=== PATIENT | female | born 1945 | race Caucasian/White ===

== ENCOUNTER → 2025-02-04 10:32 | Outpatient (BNVA) | payer MEDICARE, OTHER, SELFPAY | PROVIDERS: Family Provider Family Medicine; Visit Provider Dermatology | DX: D22.5 Melanocytic nevi of trunk (principal); L82.1 Other seborrheic keratosis; L72.0 Epidermal cyst; L57.0 Actinic keratosis; C44.519 Basal cell carcinoma of skin of other part of trunk | CPT/HCPCS: 11603; 13101; 99203 ==

== ENCOUNTER → 2025-02-19 11:51 | Outpatient (BNVA) | payer MEDICARE, OTHER, SELFPAY | PROVIDERS: Family Provider Family Medicine; Visit Provider Dermatology | DX: D22.5 Melanocytic nevi of trunk (principal); L82.1 Other seborrheic keratosis; D48.5 Neoplasm of uncertain behavior of skin | CPT/HCPCS: 11102; 99213 ==

== ENCOUNTER → 2025-03-05 12:00 | Outpatient (BNVA) | payer MEDICARE, OTHER, SELFPAY | PROVIDERS: Family Provider Family Medicine; Visit Provider Dermatology | DX: D03.61 Melanoma in situ of right upper limb, including shoulder (principal); D22.5 Melanocytic nevi of trunk; Z08 Encounter for follow-up examination after completed treatment for malignant neoplasm; Z85.828 Personal history of other malignant neoplasm of skin | CPT/HCPCS: 99214 ==

== ENCOUNTER 2025-03-11 13:56 | Emergency (ER) | payer MEDICARE, OTHER, SELFPAY ==
--- OUTSIDE RECORDS SUMMARY | 2025-03-11 14:01 | XMS_ITS | Encounter Summary ---
Author Organization [facility] Address [address] [place] [address] Care Team Providers Care Central Lab Technician Name Role Phone Nicky Moreno MD Primary Care Provider [phone] [phone] Reason for Referral * Radiology Services (Routine) - Closed Specialty Diagnoses / Procedures Referred By Fransico snyder Referred To Contact Diagnoses Right ureteral stone Procedures XR FLUORO LESS THAN 1 HOUR Lovely Musa MD [address] [address] Phone: tel: fax: Referral ID Status Reason Start Date Expiration Date Visits Re quested Visits Authorized [id number] Closed 06/30/2020 07/31/2021 1 1 COATER Encounter Details Date Type Department Care Team (Latest Contact Info) Description 06/30/2020 Ancillary Orders [facility] Radiology OR [facility] [place] [address] Lovely Musa MD [address] [address] Right ureteral stone Social History Tobacco Use Types Packs/Day Years Used Date Smoking Tobacco: Former Smokeless Tobacco: Never Alcohol Use Standard Drinks/Week Comments No 0 (1 standard drink = 0.6 oz pur e alcohol) Comments No Sex and Gender Information Value Date Recorded Sex Assigned at Not on file Legal Sex Female 7:18 PM CDT Gender Identity Not on file Sexual Orientation Not on file COVID-19 Exposure Response Date Recorded In the last month, have you been in contact with someone who was confirmed or suspected to have Coronavirus / COVID-19? No / Unsure 06/29/2020 8:05 AM LEAD COATER documented as of this encounter Plan of Treatment Not on file documented as of this encounter Results * XR FLUORO LESS THAN 1 HOUR (06/29/2020 9:52 AM LEAD COATER) Narrative 06/30/2020 5:05 AM LEAD COATER Order information only. Exam was auto-finalized. us Lovely Musa MD DIAGNOSTIC IMAGING ORDERAB LES Final Result documented in this encounter Visit Diagnoses Diagnosis Right ureteral stone Calculus of ureter Right ureteral stone Calculus of ureter documented in this encounter Additional Health Concerns Assessment Noted Time PHQ-9 Depression Total Score: 1 06/08/20 20 8:59 AM LEAD COATER documented as of this encounter Care Teams Central Lab Technician Relationship Specialty Start Date End Date Nicky Moreno MD [address] [facility] [address] [place] [address] PCP - General Family Practice 09/20/20 documented as of this encounter
[2025-03-11 14:02] VITALS: BP 150/85; PULSE 81; RESP 16; TEMP 36.5; O2SAT 97
--- OUTSIDE RECORDS SUMMARY | 2025-03-11 14:02 | XMS_ITS | Encounter Summary ---
Author Organization [facility] Address [address] [place] [address] Care Team Providers Care Director Of Accounting Name Role Phone Nick Vo MD Primary Care Provider [phone] [phone] Encounter Details Date Type Department Care Team (Late Contact Info) Description 01/27/2022 Digital Self COVID-1 9 Monitoring [place] ABSTRACTION Provider, Abstract NO ADDRESS ON FILE Social History Tobacco Use Types Packs/Day Years Used Date Smoking Tobacco: Former Cigarettes 1.5 40 Smokeless Tobacco: Never Alcohol Use Standard Drinks/Week Comments No 0 (1 standard drink = 0.6 oz pur e alcohol) Comments No Sex and Gender Information Value Date Recorded Sex Assigned at Not on file Legal Sex Female 6:09 AM BANKRUPTCY MANAGER Gender Identity Not on file Sexual Orientation Not on file COVID-19 Exposure Response Date Recorded In the last 10 days, have yo u been in contact with someone who was confirmed or suspected to have Coronavirus/COVID-19? No / Unsure 01/24/2022 10:25 AM CDT documented as of this encounter Plan of Treatment Upcoming Encounters Date Type Department Care Team (Late Contact Info) Description 06/01/2025 8:00 AM BANKRUPTCY MANAGER Office Visit [facility] Medicine [address] [address] Nick Vo MD [address] [address] documented as of this encounter Visit Diagnoses Not on filedocumented in this encounter Additional Health Concerns Infection Onset Date Last Indicated Resolved Time COVID-19 01/24/2022 01/24/2022 02/13/2022 1:16 AM CDT documented as of this encounter Care Teams Director Of Accounting Relationship Specialty Start Date End Date Nick Vo MD [address] [address] PCP - General Family Practice 07/11/21 documented as of this encounter
--- OUTSIDE RECORDS SUMMARY | 2025-03-11 14:02 | XMS_ITS | Encounter Summary ---
Author Organization [facility] Address [address] [place] [address] Care Team Providers Care Mortgage Loan Reviewer Name Role Phone Nick Vo MD Primary Care Provider [phone] [phone] Encounter Details Date Type Department Care Team (Late Contact Info) Description 01/26/2022 Digital Self COVID-1 9 Monitoring STL ABSTRACTION [...] on file Legal Sex Female 6:09 AM TEAM LEADER SURGERY Gender Identity Not on file Sexual Orientation [...] (Late Contact Info) Description 06/01/2025 8:00 AM TEAM LEADER SURGERY Office Visit [facility] Medicine [address] [address] Nick Vo MD [address] [address] documented as of this encounter Visit Diagnoses Not on filedocumented in this encounter Additional Health Concerns Infection Onset Date Last Indicated Resolved Time COVID-19 01/24/2022 01/24/2022 02/13/2022 1:16 AM CDT documented as of this encounter Care Teams Mortgage Loan Reviewer Relationship Specialty Start Date End Date Nick Vo MD [address] [address] PCP - General Family Practice 07/11/21 documented as of this encounter
--- OUTSIDE RECORDS SUMMARY | 2025-03-11 14:02 | XMS_ITS | Encounter Summary ---
Author Organization [facility] Address [address] [place] [address] Care Team Providers Care Roll Handler Name Role Phone Nicky Moreno MD Primary Care Provider [phone] [phone] Reason for Referral * Radiology Services (Routine) - Closed Specialty Diagnoses / Procedures Referred By Fransico snyder Referred To Contact Diagnoses Right ureteral stone Procedures XR FLUORO LESS THAN 1 HOUR Lovely Musa MD [address] [address] Phone: tel: fax: Referral ID Status Reason Start Date Expiration Date Visits Re quested Visits Authorized [id number] Closed 10/20/2020 11/20/2021 1 1 Encounter Details Date Type Department Care Team (Latest Contact Info) Description 10/20/2020 Ancillary Orders [facility] Radiology OR [facility] [place] [address] Lovely Musa MD [address] [address] Right ureteral stone Social History [...] have Coronavirus / COVID-19? No / Unsure 10/19/2020 11:23 AM CDT documented as of this encounter Plan of Treatment Not on file documented as of this encounter Results * XR FLUORO LESS THAN 1 HOUR (10/19/2020 5:13 PM CDT) Narrative 10/20/2020 5:29 AM CDT Order information only. Exam was auto-finalized. us Lovely Musa MD DIAGNOSTIC IMAGING ORDERAB LES Final Result documented in this encounter Visit Diagnoses Diagnosis Right ureteral stone Calculus of ureter Right ureteral stone Calculus of ureter documented in this encounter Additional Health Concerns Assessment Noted Time PHQ-9 Depression Total Score: 1 06/08/20 20 8:59 AM LINE CONTROLLER documented as of this encounter Care Teams Roll Handler Relationship Specialty Start Date End Date Nicky Moreno MD [address] [facility] [address] [place] [id number] PCP - General Family Practice 09/20/20 documented as of this encounter
--- OUTSIDE RECORDS SUMMARY | 2025-03-11 14:02 | XMS_ITS | Clinical Summary ---
Author Organization [facility] Address [address] [facility] [address] [place] [address] Phone Care Team Providers Care Agricultural Equipment Mechanic Name Role Phone Nick Vo MD Primary Care Provider [phone] [phone] Allergies Active Allergy Reactions Criticality Noted Date Comments Diphenhydramine Hcl Hives High 02/05/2017 Iodine Hives High 02/05/2017 Medications trospium (SANCTURA) 20 mg TabletIndication s:OAB (overactive bladder),Mixed incontinence Take 1 Tablet (20 mg) by mouth 2 times daily. 180 Tablet 3 4 Active HYDROcodone-acet aminophen (NORCO) 5-325 mg tabletIndication s:Chronic pain of both hips Take 1 Tablet by mouth every 8 hours as needed for Pain, Moderate. Max Daily Amount: 3 Tablets 20 Tablet 4 Active Additional Information Patient not taking.Reported on 01/05/2025 cholecalciferol 1,250 mcg (50,000 unit) Capsule Take 1 Capsule (50,000 Units) by mouth every 7 days. 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 02/12/2017 Morbid obesity with body mass index of 40.0-49.9 02/12/2017 History of colon cancer 02/12/2017 History of [place] (myocardial infarction) 02/12/2017 H/O partial resection of colon 02/12/2017 Bladder calculi 02/12/2017 Resolved Problems Problem Noted Date Diagnosed Date Resolved Date Influenza 08/27/2019 07/11/2021 Encounters Date Type Department Care Team Description 01/16/[address] [phone] Nick Vo MD Provider Call; Patient Communication 01/08/2025 Results Follow-Up [address] [phone] Rosa Maria Veliz FNP PATHOLOGY 01/05/2025 3:20 PM CDT Office Visit [address] [phone] Rosa Maria Veliz FNP Skin lesion (Primary Dx); Lower extremity edema 12/23/2024 External Device Data STL ABSTRACTION Provider, Abstract from Last 3 Months Immunizations Immunization Administration Dates Next Due ([employer])(12 YR UP) COVID-19 VACCINE - EMERGENCY USE AUTHORIZATION, MRNA, [id number]) 30 MCG/0.3 ML IM SUSP 02/18/2021,01/28/2021 Family History Medical History Relation Name Comments No Known Problems Daughter Cancer Mother UNKOWN TYPE OF CANCER Ovarian Cancer Sister 1 Other Sister 2 DIVERTICULITIS Breast Cancer Neg Hx Relation Name Status Comments Daughter Alive Maternal Grandmother Mother Sister 1 Sister 2 Sister 3 Alive Social History Tobacco Use Types Packs/Day Years Used Date Smoking Tobacco: Former Cigarettes 1.5 40 Smokeless Tobacco: Never Tobacco Cessation:Counseling Given: No Alcohol Use Standard Drinks/Week Comments No 0 (1 standard drink = 0.6 oz pur e alcohol) Comments No Sex and Gender Information Value Date Recorded Sex Assigned at Not on file Legal Sex Female 6:09 AM ENDOCRINOLOGY SPECIALIST Gender Identity Not on file Sexual Orientation Not on file Last Filed Vital Signs Vital Sign Reading Time Taken Comments Blood Pressure 160/60 01/05/2025 3:12 PM CDT Pulse 83 01/05/2025 3:07 PM CDT Temperature 36.4 C (97.6 F) 01/05/2025 3:07 PM CDT Respiratory Rate 16 01/05/2025 3:07 PM CDT Oxygen Saturation 99% 01/05/2025 3:07 PM CDT Inhaled Oxygen Concentration - - Weight 99.8 kg (220 lb) 01/05/2025 3:07 PM CDT Height 149.9 cm (4' 11 ) 01/05/2025 3:07 PM CDT Body Mass Index 44.43 01/05/2025 3:07 PM CDT Plan of Treatment Upcoming Encounters Date Type Department Care Team (Late st Contact Info) Description 06/01/2025 8:00 AM ENDOCRINOLOGY SPECIALIST Office Visit [address] [address] Nick Vo MD [address] [address] Health Maintenance Due Date Last Done Comments DTAP/TDAP/TD VACCINES (1 - Tdap) 1964 PNEUMOCOCCAL VACCINE 50+ YEA RS (1 of 1 - PCV) 01/13/1996 ZOSTER VACCINE (1 of 2) 01/13/1996 COLORECTAL SCREENING 04/26/2020 04/26/2015, 04/26/20 15 RSV VACCINE (60+ or ) (1 - 1-dose 75+ series) 2021 OSTEOPOROSIS SCREENING 11/05/2022 11/05/2017, 2017 COVID-19 Vaccine (3 - 2023-2 5 season) 2024 02/18/2021, 01/28/2021 [place] ([place]) Preventative Visit/Annual Wellness Visit 07/09/2024 05/30/2024, 05/21/2023 INFLUENZA VACCINE (#1) 2025 , 05/30/2024, 05/21/2023, Additional history exists Medical Devices Implanted Type Area Invoice Coder Device Identifier Shelf Expiration Date Model / Serial / Lot Stent Contour [id number] - [id number] Implanted:Qty : 1 on 10/19/2020 by Lovely Musa MD Stent Right: Ureter [employer]- UROLOGY/AUDIOLOGY TECHNICIAN [id number] 07/17/2023 [id number] / / [id number] Explanted Type Area Invoice Coder Device Identifier Shelf Expiration Date Model / Serial / Lot Stent Contour [id number] - [id number] Implanted:Qty : 1 on 06/11/2020 by Lovely Musa MD Explanted:Qty : 1 on 06/29/2020 Stent Right: Ureter [employer] UROLOGY/AUDIOLOGY TECHNICIAN [id number] 01/30/2023 [id number] / / [id number] Procedures Procedure Name Priority Date/Time Associated Diagnosis Comments PATHOLOGY Routine 01/05/2025 4:47 PM CDT Skin lesion XR DEXA BONE DENSITY AXIAL 1 OR MORE SITES Routine 11/05/2017 12:55 PM CDT Welcome to Medicare preventive visit Asymptomatic menopause from Last 3 Months or Most Recently Relevant to Health Maintenance Results * PATHOLOGY (01/05/2025 4:47 PM CDT) CASE REPORT Surgical Pathology Report Case: [id number] Authorizing Provider: RosaM aria Veliz FNP Collected: 01/05/2025 04:47 PM Ordering Location: [facility] Received: 01/07/2025 06:07 AM [facility] Pathologist: Lauri Moreira MD Specimen: Skin, upper back 12:20 PM CDT [facility] FINAL DIAGNOSIS A. Skin, upper back, punch biopsy - Ulcerated basal cell carcinoma, nodular pattern, involving biopsy edges Lauri Moreira MD [id number] 12:20 PM CDT [facility] at 1220 CDT GROSS DESCRIPTION A. Received in a container of formalin labeled [place] -upper back is a cylindrical portion of skin, that measures 0.4 cm in length by 0.2 cm in diameter. The base is inked blue. Specimen is bisected and submitted entirely in A1. Danika Ewing 5 12:20 PM CDT [facility] CLINICAL INFORMATION L98.9 - Skin lesion [ICD-10-CM] 5 12:20 PM CDT [facility] COMMENT The [employer] voice-activated dictation system may have been used in the creation of this report. Inherent to this system is the possibility of errors in syntax, grammar, punctuation, or other areas that could impact interpretation. If there are interpretive questions about the report, please contact the performing pathologist. Unless gross only is specified in the diagnosis, the microscopic examination substantiates the above cited diagnosis. The performance characteristics of all immunohistochemical stains cited in this report (if any) were determined by the Diagnostic Immunohistochemistry Laboratory of [facility] in compliance with CLIA'88 regulations. Some of these tests rely on the use of analyte specific reagents and are subject to specific labeling requirements by the FDA. All controls show appropriate reactivity. This testing was developed by the Diagnostic Immunohistochemistry Laboratory of [facility]. It has not been cleared or approved by the FDA. The FDA has determined that such clearance or approval is not necessary. 5 12:20 PM CDT [facility] Tissue TISSUE SPECIMEN FROM SKIN / Unknown Collection / Unknown 01/05/2025 4:47 PM CDT 01/07/2025 6:07 AM CDT Rosa Maria Veliz TRACER LATHE SET UP OPERATOR PATHOLOGY/CYTOLOGY ORDERABL ES Final Result [facility] CLIA # [id number] [address] [place] [id number] * XR DEXA BONE DENSITY AXIAL 1 OR MORE SITES (11/05/2017 12:55 PM CDT) Anatomical Region Laterality Modality Other Impressions 11/05/2017 1:32 PM CDT Abnormal examination Bone density lies in the osteoporotic range in the left proximal femur lying significantly below the average of the patient's age-matched control consistent with accelerated bone demineralization is the etiology of her osteoporosis. NOF guidelines recommend consideration of FDA-approved medical therapies in patients with T-scores of the spine or hip equal to or less than -2.5 or with FRAX determined 10-year probabilities of hip/major osteoporosis-related fractures equal or greater than 3%/20% respectively. Consider assessing fracture risk using the FRAX analysis tool for guidance of clinical management available online at www.shef.ac.uk/FRAX/. Enter GetGlue for Select DXA and the Femoral Neck BMD value. Also consider remeasuring no sooner than 2 years only as clinically needed. Narrative 11/05/2017 1:32 PM CDT DEXA Evaluation of the Lumbar Spine and Left Proximal Femur Reason for Consultation: Ovarian failure. Evaluation of bone mineral density. The following absorptiometry data were obtained. The quality of this examination is acceptable with regards to count density, processed images, data display and lack of important artifacts (including but not limited to motion and attenuation artifacts). Serial examination number 1. Lumbar spine images demonstrate scoliotic and degenerative changes which may spurious increase bone density somewhat. L1-L4 BMD (g/cm2): 0.847 Adult T-score: -1.8 Adult Z-score: 0.4 Left Femoral Neck BMD (g/cm2): 0.532 Adult T-score: -2.9 Adult Z-score: -1.0 Left Total Hip BMD (g/cm2): 0.855 Adult T-score: -0.7 Adult Z-score: 0.9 Procedure Note Jay [place] MD - 09/01/2021 DEXA Evaluation of the Lumbar Spine and Left Proximal Femur Reason for Consultation: Ovarian failure. Evaluation of bone mineral density. The following absorptiometry data were obtained. The quality of this examination is acceptable with regards to count density, processed images, data display and lack of important artifacts (including but not limited to motion and attenuation artifacts). Serial examination number 1. Lumbar spine images demonstrate scoliotic and degenerative changes which may spurious increase bone density somewhat. L1-L4 BMD (g/cm2): 0.847 Adult T-score: -1.8 Adult Z-score: 0.4 Left Femoral Neck BMD (g/cm2): 0.532 Adult T-score: -2.9 Adult Z-score: -1.0 Left Total Hip BMD (g/cm2): 0.855 Adult T-score: -0.7 Adult Z-score: 0.9 IMPRESSION Abnormal examination Bone density lies in the osteoporotic range in the left proximal femur lying significantly below the average of the patient's age-matched control consistent with accelerated bone demineralization is the etiology of her osteoporosis. NOF guidelines recommend consideration of FDA-approved medical therapies in patients with T-scores of the spine or hip equal to or less than -2.5 or with FRAX determined 10-year probabilities of hip/major osteoporosis-related fractures equal or greater than 3%/20% respectively. Consider assessing fracture risk using the FRAX analysis tool for guidance of clinical management available online at www.shef.ac.uk/FRAX/. Enter GetGlue for Select DXA and the Femoral Neck BMD value. Also consider remeasuring no sooner than 2 years only as clinically needed. Nick Vo MD DIAGNOSTIC IMAGING ORDERA BLES Final Result from Last 3 Months or Most Recently Relevant to Health Maintenance Insurance Endorse For A Cause * Guarantor: AGUSTINA SOUSA Account Type Relation to Patient Date of Phone Billing Address Personal/Family [address] [place] [address] [employer] Care Teams Agricultural Equipment Mechanic Relationship Specialty Start Date End Date Nick Vo MD [address] [facility] [address] [place] [address] PCP - General Family Practice 07/11/21
--- OUTSIDE RECORDS SUMMARY | 2025-03-11 14:02 | XMS_ITS ---
Author Organization [facility] Address [address] [place] [address] Phone Care Team Providers Care Pipeline Gang Supervisor Name Role Phone Nick Vo MD Primary Care Provider [phone] [phone] Active Problems Problem Noted Date Diagnosed Date Influenza vaccination declined 05/30/2024 Chronic pain of both hips 05/21/2023 Malignant neoplasm of urinary bladder 07/12/2021 Stage 3b chronic kidney disease 07/12/2021 OAB (overactive bladder) 07/11/2021 Mixed incontinence 07/11/2021 Hydronephrosis, right 06/09/2020 Right ureteral stone 06/09/2020 Age-related osteoporosis wit hout current pathological fracture 11/15/2017 History of nephrolithiasis 02/12/2017 Atherosclerosis of [place] co ronary artery of [place] heart without angina pectoris 02/12/2017 Morbid obesity with body mass index of 40.0-49.9 02/12/2017 History of colon cancer 02/12/2017 History of [place] (myocardial infarction) 02/12/2017 H/O partial resection of colon 02/12/2017 Bladder calculi 02/12/2017 Current Treatment and Therapy Plans No current plan information found. Past Treatment and Therapy Plans No past plan information found. Lifetime Dose Tracking * Chemical Lifetime Dose Automatic Entry Manual Entr y Effective Dose 65.7 mSv 19.6 mSv 46.1 mSv Total DLP 4,494 DLP 1,574 DLP 2,920 DLP CTDIvol Max 111.6 mGy 38 mGy 73.6 mGy CTDIvol Min 111.6 mGy 38 mGy 73.6 mGy Resolved Problems Problem Noted Date Diagnosed Date Resolved Date Influenza 08/27/2019 07/11/2021
--- OUTSIDE RECORDS SUMMARY | 2025-03-11 14:02 | XMS_ITS | Encounter Summary ---
Author Organization [facility] Address [address] [place] [address] Care Team Providers Care On Call Name Role Phone Nicky Moreno MD Primary Care Provider [phone]- [phone] Encounter Details Date Type Department Care Team (Late st Contact Info) Description 02/27/2017 Ancillary Orders [facility] [address] [facility] [address] [place] [address] Nick Vo MD [address] [place] [address] Screening for breast cancer Social History Tobacco Use Types Packs/Day Years Used Date Smoking Tobacco: Former Smokeless Tobacco: Never Alcohol Use Standard Drinks/Week Comments No 0 (1 standard drink = 0.6 oz pur e alcohol) Comments No Sex and Gender Information Value Date Recorded Sex Assigned at Not on file Legal Sex Female 7:18 PM CDT Gender Identity Not on file Sexual Orientation Not on file documented as of this encounter Plan of Treatment Not on file documented as of this encounter Results * MAMMO PRIOR STUDY (07/16/2015 1:20 PM PORTUGUESE TUTOR) Narrative 02/27/2017 1:16 PM CDT This exam was auto finalized to allow images to be scanned to PACS. Nick oV MD DIAGNOSTIC IMAGING ORDERA BLES Final Result documented in this encounter Visit Diagnoses Diagnosis Screening for breast cancer Breast screening, unspecified Screening for breast cancer Breast screening, unspecified documented in this encounter Care Teams On Call Relationship Specialty Start Date End Date Nicky Moreno MD [address] [phone] PCP - General Family Practice 09/20/20 documented as of this encounter
--- OUTSIDE RECORDS SUMMARY | 2025-03-11 14:02 | XMS_ITS | Clinical Summary ---
Author Organization [facility] Address [address] [facility], [place], [facility] [address] [place] [address] Phone Care Team Providers Care Flight Engineer Inspector Name Role Phone Nicky Moreno MD Primary Care Provider [phone] Allergies Active Allergy Reactions Criticality Noted Date Comments Diphenhydramine Hcl Hives High 02/05/2017 Iodine Hives High 02/05/2017 Medications HYDROcodone-artie taminophen (NORCO) 7.5-325 mg TabletIndicatio ns:Right ureteral stone,Lesion of bladder Take 1 Tablet by mouth every 6 hours as needed for Pain, Moderate. Max Daily Amount: 4 Tablets 20 Tablet 06/29/2020 Active HYDROcodone-artie taminophen (NORCO) 7.5-325 mg TabletIndicatio ns:Right ureteral stone Take 1 Tablet by mouth every 6 hours as needed for Pain, Moderate. Max Daily Amount: 4 Tablets 20 Tablet 10/19/2020 6:28 PM CDT 10/19/2020 Active oxyCODONE (ROXICODONE) 5 mg tabletIndicatio ns:Right ureteral stone Take 1 Tablet (5 mg) by mouth every 6 hours as needed for Pain. 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 02/12/2017 Bladder calculi 02/12/2017 Family History Medical History Relation Name Comments No Known Problems Daughter Cancer Mother UNKOWN TYPE OF CANCER Ovarian Cancer Sister 2 Other Sister 3 DIVERTICULITIS Breast Cancer Neg Hx Relation Name Status Comments Daughter Alive Maternal Grandmother Mother Sister 1 Alive Sister 2 Sister 3 Social History Tobacco Use Types Packs/Day Years Used Date Smoking Tobacco: Former Smokeless Tobacco: Never Tobacco Cessation:Counseling Given: No [...] Sign Reading Time Taken Comments Blood Pressure 150/64 10/19/2020 6:30 PM CDT Pulse 73 10/19/2020 6:30 PM CDT Temperature 36.3 C (97.3 F) 10/19/2020 6:30 PM CDT Respiratory Rate 22 10/19/2020 6:30 PM CDT Oxygen Saturation 96% 10/19/2020 6:30 PM CDT Inhaled Oxygen Concentration - - Weight 91.4 kg (201 lb 8 oz) 12/24/2020 1:26 PM CDT Height 149.9 cm (4' 11 ) 12/24/2020 1:26 PM CDT Body Mass Index 40.7 12/24/2020 1:26 PM CDT Plan of Treatment Health Maintenance Due Date Last Done Comments DTAP/TDAP/TD VACCINES (1 - Tdap) 1964 PNEUMOCOCCAL VACCINE 50+ YEA RS (1 of 1 - PCV) 01/13/1996 ZOSTER VACCINE (1 of 2) 01/13/1996 COLORECTAL SCREENING 04/26/2020 04/26/2015, 04/26/2015, 04/26/2015, Additional history exists RSV VACCINE (60+ or ) (1 - 1-dose 75+ series) 2021 OSTEOPOROSIS SCREENING 11/05/2022 11/05/2017 COVID-19 Vaccine (3 - 2023-2 5 season) 2024 02/18/2021, 01/28/2021 [place] Preventative Visit/Annual Wellness Visit 07/09/2024 10/22/2017 INFLUENZA VACCINE (#1) 2025 06/08/2020, 2018 Medical Devices Implanted Type Area Field Placement Director Device Identifier Shelf Expiration Date Model / Serial / Lot Stent Contour [id number] - [id number] Implanted:Qty: 1 on 10/19/2020 by Lovely Musa MD at [facility] Stent Right: Ureter [employer] [id number] 07/17/2023 [id number] 20 / / [id number] Explanted Type Area Field Placement Director Device Identifier Shelf Expiration Date Model / Serial / Lot Stent Contour [id number] - [id number] Implanted:Qty: 1 on 06/11/2020 by Lovely Musa MD at [facility] Explanted:Qty: 1 on 06/29/2020 at [facility] Stent Right: Ureter [employer] [id number] 01/30/2023 [id number] 20 / / [id number] Procedures Procedure Name Priority Date/Time Associated Diagnosis Comments XR DEXA BONE DENSITY AXIAL 1 OR MORE SITES Routine 11/05/2017 12:55 PM CDT Welcome to Medicare preventive visit Asymptomatic menopause from Last 3 Months or Most Recently Relevant to Health Maintenance Results * XR DEXA BONE DENSITY AXIAL 1 OR MORE SITES (11/05/2017 12:55 PM CDT) Anatomical Region Laterality Modality Digital Radiogra phy 11/05/2017 12:5 5 PM CDT Impressions 11/05/2017 1:32 PM CDT IMPRESSION: Abnormal examination Bone density lies in the [...] clinical management available online at [email or web address] Enter [employer]onic for Select DXA and the Femoral Neck [...] 0.9 Procedure Note Jay Toledo MD - 11/05/2017 DEXA Evaluation of the Lumbar Spine and [...] 0.855 Adult T-score: -0.7 Adult Z-score: 0.9 IMPRESSION: Abnormal examination Bone density lies in the [...] clinical management available online at [email or web address] Enter [employer]onic for Select DXA and the Femoral Neck BMD value. Also consider remeasuring no sooner than 2 years only as clinically needed. Nick Vo MD DIAGNOSTIC IMAGING ORDERA BLES Final Result from Last 3 Months or Most Recently Relevant to Health Maintenance Insurance RF Code Member Subscriber Plan / Payer (Ef fective 2011-Present) Name:AkshatRandalet Relation to Subscriber:Spouse Name:Maulik Oden Date of :1956 (Home) Address: [address] [address] Payer ID:Not on file Group ID:Not on file Type:Government Insurance Address: [place] [id number] [address] [employer] [facility] RX [employer] Express Advance Directives For more information, please contact: [phone] * Full Code (Latest Code Status on File) Date Activated Date Inactivated Comments 06/09/2020 8:06 PM 06/12/2020 2:02 PM Care Teams Flight Engineer Inspector Relationship Specialty Start Date End Date Nicky Moreno MD [address] [address] PCP - General Family Practice 09/20/20
--- OUTSIDE RECORDS SUMMARY | 2025-03-11 14:02 | XMS_ITS | Encounter Summary ---
Author Organization [facility] Address [address] [place] [address] Care Team Providers Care Division Operations Manager Name Role Phone Nick Vo MD Primary Care Provider [phone] [phone] Encounter Details Date Type Department Care Team [...] on file Legal Sex Female 6:09 AM [employer] Gender Identity Not on file Sexual Orientation [...] (Late Contact Info) Description 06/01/2025 8:00 AM [employer] Office Visit [facility] Medicine [address] [address] Nick Vo MD [address] [address] documented as of this encounter Visit Diagnoses Not on filedocumented in this encounter Additional Health Concerns Infection Onset Date Last Indicated Resolved Time COVID-19 01/24/2022 01/24/2022 02/13/2022 1:16 AM CDT documented as of this encounter Care Teams Division Operations Manager Relationship Specialty Start Date End Date Nick Vo MD [address] [address] PCP - General Family Practice 07/11/21 documented as of this encounter
--- OUTSIDE RECORDS SUMMARY | 2025-03-11 14:02 | XMS_ITS | Encounter Summary ---
Author Organization [facility] Address [address] [place] [address] Care Team Providers Care Sprinkler Irrigation Equipment Mechanic Name Role Phone Nick Vo MD Primary Care Provider [phone] [phone] Encounter Details Date Type Department Care Team [...] on file Legal Sex Female 6:09 AM [employer] Gender Identity Not on file Sexual Orientation [...] (Late Contact Info) Description 06/01/2025 8:00 AM [employer] Office Visit [facility] Medicine [address] [address] Nick Vo MD [address] [address] documented as of this encounter Visit Diagnoses Not on filedocumented in this encounter Additional Health Concerns Infection Onset Date Last Indicated Resolved Time COVID-19 01/24/2022 01/24/2022 02/13/2022 1:16 AM CDT documented as of this encounter Care Teams Sprinkler Irrigation Equipment Mechanic Relationship Specialty Start Date End Date Nick Vo MD [address] [address] PCP - General Family Practice 07/11/21 documented as of this encounter
--- NOTE | 2025-03-11 14:18 | ED_ITS ---
HPI - Female Genitourinary 2 General: Chief complaint: Urogenital-Female Stated complaint: full bladder cant pee Time Seen by Provider: 03/11/25 13:58 Source: patient Mode of arrival: ambulatory Limitations: no limitations History of Present Illness: Patient states she been having difficulty urinating over the last 2 days states she is like she needed to go with having a hard time going states that sometimes she is just peeing when she stands and has some dribbling patient was able to give a small urine sample here had some mild discomfort in her lower abdomen denies any severe pain. She denies any vomiting or diarrhea Associated symptoms: Deny headache(s) or nausea Related Data Previous Rx's ?Medication ?Instructions ?Recorded cephalexin 500 mg capsule 500 mg PO TID 7 days #21 cap s 03/11/25 Allergies Allergy/AdvReac Type Severity Reaction Status Date / Time diphenhydramine (From Allergy Unknown Verified 03/11/25 14:05 Benadryl) iodine Allergy Unknown Verified 03/11/25 14:05 Review of Systems 2 Const: Denies: fever(s), chills, body aches or change in appetite ENMT: Denies: throat pain or dental pain Card: Denies: chest pain Resp: Denies: dyspnea GI: Denies: nausea, vomiting or diarrhea : Reports: urinary urgency and dribbling Musc: Denies: neck pain or back pain Skin/Breast: Denies: rash Neuro: Denies: headache(s) PFSH ED 2 PFSH: Social History Smoking and tobacco/nicotine status: former use of tobacco/nicotine Physical Exam 2 Const: COMMON NORMALS: no acute distress, patient oriented x3 and healthy appearing HENMT: COMMON NORMALS: normocephalic and atraumatic HEAD & SCALP: n ormocephalic and atraumatic Eye: COMMON NORMALS: conjunctivae normal CONJUNCTIVA: Yes conjunctivae normal Neck/C-Spine: COMMON NORMALS: full ROM and supple Chest: COMMONS NORMALS: normal inspection of the chest and normal palpation of entire chest wall Resp: COMMON NORMALS: normal respiratory effort Cardio: COMMON NORMALS: regular rate, regular rhythm and No murmurs present (Cardio) RATE: regular rate RHYTHM: regular rhythm GI: COMMON NORMALS: Normal to inspection, nondistended, normoactive bowel sounds present, Soft to palpation, non-tender and no masses PALPATION: Yes Soft to palpation Extremity: COMMON NORMALS: normal to inspection and full ROM Neuro: COMMON NORMALS: patient oriented x3, moves all extremities and no focal motor deficits Psych: COMMON NORMALS: mental status grossly normal, Normal thought process present and cooperative THOUGHT PROCESS: Normal thought process present Skin: COMMON NORMALS: no rashes or lesions noted and no wounds GENERAL SKIN EXAM: no rashes or lesions noted Course 2 Vital Signs: Vital signs: Vital Signs Temperature 97.7 F 03/11/25 14:02 Pulse Rate 81 03/11/25 14:02 Respiratory Rate 16 03/11/25 14:02 Blood Pressure 181/95 03/11/25 14:30 Pulse Oximetry 96 03/11/25 14:30 Oxygen Delivery Me thod Room Air 03/11/25 14:30 MDM - Female Medical Decision Making Patient presents here with acute cystitis patient has no signs of urinary tension here kidney functions normal patient stable for discharge we will start her on antibiotics she is follow-up with PCP return if worsening. Medical Records I reviewed the patient's medical records. Lab Data I reviewed the patient's lab results. 03/11/25 14:43 03/11/25 14:43 Laboratory Results WBC 7.40 10^3/uL (3.29-11.43) 03/11/25 14:43 RBC 4.28 10^6/uL (3.85-5.65) 03/11/25 14:43 Hgb 11.70 g/dL (11.27-16.99) 03/11/25 14:43 Hct 38.9 % (36-47) 03/11/25 14:43 MCV 90.9 fl (85-98) 03/11/25 14:43 MCH 27.3 pg (27-33) 03/11/25 14:43 MCHC 30.1 g/dL (30-55) 03/11/25 14:43 RDW 14.7 % (12.1-15.1) 03/11/25 14:43 Plt Count 277 10^3/cmm (157-399) 03/11/25 14:43 MPV 11.3 fL (7.4-10.4) H 03/11/25 14:43 Neut % (Auto) 57.0 % 03/11/25 14:43 Lymph % (Auto) 30.7 % 03/11/25 14:43 [place] % (Auto) 7.0 % 03/11/25 14:43 Eos % (Auto) 4.1 % 03/11/25 14:43 Baso % (Auto) 0.8 % 03/11/25 14:43 Neut # (Auto) 4.22 10^3/uL (1.8-7.7) 03/11/25 14:43 Lymph # (Auto) 2.3 10^3/uL (0.8-4.8) 03/11/25 14:43 [place] # (Auto) 0.5 10^3/uL (0.2-0.9) 03/11/25 14:43 Eos # (Auto) 0.3 10^3/uL (0.0-0.8) 03/11/25 14:43 Baso # (Auto) 0.1 10^3/uL (0.0-0.1) 03/11/25 14:43 Nucleated RBC % (auto) 0 % 03/11/25 14:43 Nucleated RBCs # 0.0 /100WBC 03/11/25 14:43 Sodium 142 mmol/L (136-145) 03/11/25 14:43 Potassium 4.4 mmol/L (3.5-5.1) 03/11/25 14:43 Chloride 108 mmol/L (98-107) H 03/11/25 14:43 Carbon Dioxide 24 mmol/L (22-29) 03/11/25 14:43 Anion Gap 14.4 (5-19) 03/11/25 14:43 BUN 14 mg/dL (8-23) 03/11/25 14:43 Creatinine 1.4 mg/dL (0.5-0.9) H 03/11/25 14:43 GFR Calculation Not Reportable 03/11/25 14:43 Glucose 90 mg/dL (65-115) 03/11/25 14:43 Calculated Osmolality 294 mOsm/kg (285-295) 03/11/25 14:43 Calcium 8.5 mg/dL (8.5-10.5) 03/11/25 14:43 Urine Color Yellow (Yellow) 03/11/25 14:20 Urine Appearance Cloudy (CLEAR) A 03/11/25 14:20 Urine pH 5.5 (5-7) 03/11/25 14:20 Ur Specific [place] 1.014 (1.005-1.030) 03/11/25 14:20 Urine Protein Trace (Negative) A 03/11/25 14:20 Urine Glucose (UA) Negative (Normal) 03/11/25 14:20 Urine Ketones Negative (Negative) 03/11/25 14:20 Urine Blood Non-haemolysed trace (Negative) 03/11/25 14:20 Urine Nitrate Negative (Negative) 03/11/25 14:20 Urine Bilirubin Negative (Negative) 03/11/25 14:20 Urine Urobilinogen 0.2 mg/dL (Negative) 03/11/25 14:20 Ur Leukocyte Esterase 2+ (Negative) A 03/11/25 14:20 Urine RBC 0-2 /hpf (0-2) 03/11/25 14:20 Urine WBC >100 /hpf (0-5) H 03/11/25 14:20 Ur Squamous Epith Cells 0-5 /hpf (0-5) 03/11/25 14:20 Amorphous Sediment Not Reportable 03/11/25 14:20 Urine Bacteria 4+ /hpf (NONE) H 03/11/25 14:20 Hyaline Casts 0.81 /lpf 03/11/25 14:20 All radiology interpretation(s) finalized by discharge Discharge Plan Discharge Patient Disposition: Home Clinical Impression: Acute cystitis Condition: Stable Prescriptions: New cephalexin 500 mg capsule 500 mg PO TID 7 Days Qty: 21 0RF Discharge Orders: Discharge ED (Routine); Ordered 03/11/25 Ordered By: Kevan Altman Referrals: Nick Vo [Family Provider, Family Practice] - 4-7 days Discharge Diet: Advance as tolerated Discharge Activity: Resume usual activity Patient Instructions: Urinary Tract Infection in Women (ED) Print Language: Vietnamese Coding Level of Care Code ED Cyber Operator for [employer]
[2025-03-11 14:30] VITALS: BP 181/95; O2SAT 96
[2025-03-11 14:43] LABS: Glucose Urine UA Negative (Normal); Nitrate Urine Negative (Negative); Specific Gravity, Urine 1.014 (1.005-1.030)
[2025-03-11 14:45] LABS: Add Urine Microscopic? YES
[2025-03-11 14:57] LABS: Hematocrit 38.9 % (36-47); Hemoglobin 11.70 g/dL (11.27-16.99); Mean Corpuscular HGB Conc 30.1 g/dL (30-55); Mean Corpuscular Hemoglobin 27.3 pg (27-33); Mean Corpuscular Volume 90.9 fl (85-98); Nucleated Red Blood Cells % 0 %; Platelet Count 277 10^3/cmm (157-399); Red Blood Count 4.28 10^6/uL (3.85-5.65); White Blood Count 7.40 10^3/uL (3.29-11.43)
[2025-03-11 15:16] LABS: Anion Gap 14.4 (5-19); Blood Urea Nitrogen 14 mg/dL (8-23); Calcium 8.5 mg/dL (8.5-10.5); Carbon Dioxide 24 mmol/L (22-29); Chloride 108 mmol/L (98-107); Glucose 90 mg/dL (65-115); Osmolality Calculated 294 mOsm/kg (285-295); Potassium 4.4 mmol/L (3.5-5.1); Sodium 142 mmol/L (136-145)
[2025-03-11] MEDS: cefTRIAXone 1,000 MG in water for injection-sterile 2.1 ML 2.1 MG IM (15:17)
[2025-03-11 15:26] VITALS: BP 155/91; PULSE 70; RESP 17; O2SAT 94
== END 2025-03-11 15:27 | disposition home or self-care (01) ==
PROVIDERS: Emergency Provider Emergency Medicine; Family Provider Family Medicine
DX: N30.00 Acute cystitis without hematuria (principal); Z87.891 Personal history of nicotine dependence
CPT/HCPCS: 36415; 80048; 81001; 85025; 87077; 87086; 87186; 96372; 99284; J0696

== ENCOUNTER → 2025-03-24 09:06 | Outpatient (BNVA) | payer MEDICARE, OTHER, SELFPAY | PROVIDERS: Family Provider Family Medicine; Visit Provider Surgery | DX: L98.9 Disorder of the skin and subcutaneous tissue, unspecified (principal) | CPT/HCPCS: 99204 ==

== ENCOUNTER 2025-04-06 06:56 | Day surgery (SDC) | payer MEDICARE, OTHER, SELFPAY ==
[2025-04-06] VITALS (13 sets, daily range): BP systolic 142–185; BP diastolic 57–104; PULSE 69–84; RESP 15–30; TEMP 36.1–36.5; O2SAT 94–98; BMI 45.9
--- NOTE | 2025-04-06 08:34 | W.PM.OPSUD ---
Surgery/Procedure H&P Update DATE OF PROCEDURE: April 06, 2025 DATE H&P PERFORMED: 03/24/25 H&P UPDATE INFORMATION: I have reviewed H&P completed within last 30 days, I have examined patient prior to procedure, No changes to prior documentation, H&P is in [facility] EMR on date indicated and Risks and benefits of the procedure reviewed PLANNED PROCEDURE: Operation Date: 04/06/25 08:55 Proposed Procedures p Wide Local Excision RIGHT Shoulder Melanoma X2 16095 42959 L98.9 C43.9(Right) - Amilcar Cortes MD
[2025-04-06] MEDS: ceFAZolin 2,000 mg SDV 2000 MG IVP (08:40)
[2025-04-06] MEDS: BUPivacaine 0.25% INJ 30 mL INJECTION (09:20)
[2025-04-06] MEDS: lidocaine-epi 1% PF 1:200,000 30 mL SDV INJECTION (09:20)
--- NOTE | 2025-04-06 09:36 | PM.OP ---
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 Post-op diagnosis: Same Post-op findings: there were 2 previous surgical scars in the right shoulder and right upper back corresponding of areas of previous excision of melanoma in situ Procedure done: Wide local excision of malignant skin lesion of the right shoulder [id number], wide local excision of malignant skin lesion of the right upper back [id number] Specimens removed/disposition: Skin lesion right upper shoulder, skin lesion right upper back Surgeon: Amilcar Cortes MD Entry Level Accountant: BUSTER OR Staff Estimated blood loss: 5 Complications: none Brief History: 80-year-old female who presents to my office for evaluation for excision of melanoma in situ of the right upper shoulder and right upper back. After discussion of all risk benefits we decided to proceed. Procedure: Patient was brought into the OR, general anesthesia was given, she was then placed in a left lateral decubitus position. The shoulder and right upper back was prepped and draped in the usual sterile fashion and a timeout conducted. The areas of previous excision were noted, the areas were marked with elliptical shape to proceed with incision. I started with the right upper shoulder, I made a 6 cm incision which enclosed the area of previous excision. The incision was deepened to the subcutaneous tissue and all the way to the level of the fascia, the lesion was excised using electrocautery. The specimen was sent to pathology. Local anesthesia was infiltrated. Hemostasis was verified. The wound was closed in layers using #2-0 Vicryl for the subcutaneous tissue, #3 Vicryl for the subcutaneous tissue #4 Monocryl for the skin and Dermabond was applied. The total area of excision was 6 x 2 x 1 cm. I then placed my attention to the right upper back. I made a 5 cm elliptical incision in compassing the area of previous excision, the incision was deepened to subcutaneous tissue and down to the level of the fascia, the lesion was then excised using electrocautery. The wound was irrigated, local anesthesia was infiltrated hemostasis was achieved and the wound was closed in layers using #2-0 Vicryl for the subcutaneous tissue #3 Vicryl for the superficial subcutaneous tissue and #3-0 nylon vertical mattress sutures for the skin. Steri-Strips were applied and a dressing was applied. At the end of the procedure all counts were correct the patient tolerated well the procedure was transferred to the PACU in stable condition.
[2025-04-06] MEDS: fentaNYL 50 mcg/mL INJ 2mL IVP (10:01)
--- NOTE | 2025-04-06 10:25 | P.ANESASSM_ITS ---
Pre-Anesthetic Assessment Height/Weight: Height 4 ft 10 in Weight 220 lb Temp Pulse Resp BP Pulse Ox O2 Del Method 97.7 F 72 19 H 185/86 95 Room Air 04/06/25 10:17 04/06/25 10:17 04/06/25 10:17 04/06/25 10:17 04/06/25 10:17 04/06/25 10:17 Preop Diagnosis: Melanoma Operation Date: 04/06/25 08:55 Proposed Procedures p Wide Local Excision RIGHT Shoulder Melanoma X2 51443 54078 L98.9 C43.9(Right) - Amilcar Cortes MD Social No alcohol and No tobacco Exam alert, oriented x 3, clear to auscultation bilaterally and regular rate & rhythm Airway Submandibular: within normal limits Cervical ROM: within normal limits Mallampati: Class II Dentition: false Anesthetic Plan ASA status: 3 Anesthesia: General Other: No prior issues with anesthesia NPO since yesterday evening Patient takes no regular home meds Denies hypertension, preop BP 185/86 Patient states that she ambulates with a cane because she has had a few falls Plan for general anesthesia Medications/Allergies Home Medications ?Medication ?Instructions ?Recorded ?Confirmed ?Last Taken ?Type meloxicam 7.5 mg tablet 7.5 mg PO DAILY #5 tabs 03/10 04/02 Unknown Rx oxycodone 5 mg tablet 5 mg PO Q8H PRN pain 3 days #10 04/06/25 Unknown Rx tabs polyethylene glycol 3350 17 gram 17 g PO DAILY 5 days #5 ea 04/06/25 Unknown Rx oral powder packet (Miralax) Allergies Allergy/AdvReac Type Severity Reaction Status Date / Time diphenhydramine (From Allergy Unknown Verified 04/06/25 07:18 Benadryl) iodine Allergy Unknown Verified 04/06/25 07:18 Current Medications Generic Name Dose Route Start Last Admin Trade Name Freq PRN Reason Stop Dose Admin Fentanyl 50 mcg 04/06/25 09:16 04/06/25 10:01 Fentanyl 50 Mcg/Ml Inj 2ml IVP 04/07/25 09:16 50 mcg Q5M PRN Administration Pain level 6-10 PACU Phase I Sodium Chloride 1,000 mls @ 30 mls/hr 04/06/25 07:15 04/06/25 08:04 Sodium Chloride 0.9% IV 04/07/25 07:14 30 mls/hr .Q24H HARRISON Administration PFSH Anesthesia Social History Smoking and tobacco/nicotine status: never used tobacco/nicotine
[2025-04-06] MEDS: oxyCODONE 5 mg IR Tab/Cap PO (10:49)
--- NOTE | 2025-04-06 11:06 | ANE.PACU2 ---
Inpatient post-anesthesia follow up: Airway intact: Yes Vital signs: Temperature 97.4 F Pulse Rate 70 Respiratory Rate 17 Blood Pressure 142/74 Pulse Oximetry 96 Oxygen Delivery Me thod Room Air Oxygen Flow Rate Fraction of Inspir ed Oxygen Hydration adequate: Yes Nausea and vomiting: No Pain level: 1 Mental status: Baseline
== END 2025-04-06 11:20 | disposition home or self-care (01) ==
PROVIDERS: PCP Family Medicine; Visit Provider Surgery
PROC: (CPT 11406; principal; 2025-04-06 08:45)
DX: D03.61 Melanoma in situ of right upper limb, including shoulder (principal); D03.59 Melanoma in situ of other part of trunk; Z79.891 Long term (current) use of opiate analgesic
CPT/HCPCS: 11406 ×2; 12034; 88304; J0690; J1100; J2405; J2704; J3010; J3490; J7030; J9999

== ENCOUNTER → 2025-04-21 13:42 | Outpatient (BNVA) | payer MEDICARE, OTHER, SELFPAY | PROVIDERS: PCP Family Medicine; Visit Provider Surgery | DX: R03.0 Elevated blood-pressure reading, without diagnosis of hypertension (principal) | CPT/HCPCS: 99024 ==